=== PATIENT | female | born 1940 | race African-American/Black ===

== ENCOUNTER 2018-06-24 17:23 | Inpatient (IN) | payer BC, MEDICARE ==
[~2018-06-24] VITALS: Ht 162.6 cm; Wt 62.6 kg
[2018-06-24] MEDS ORDERED: AMLO2.5T45 PO (17:30)
[2018-06-24] MEDS ORDERED: FLUT1DIS3 IH (17:30)
[2018-06-24] MEDS ORDERED: ASPIRIN 81MG TABLET PO ONE (18:00)
[2018-06-24] MEDS ORDERED: NITROGLYCERIN 0.4MG TABLET SL SL PRN (18:00)
[2018-06-24 18:49] LABS: BASOPHILS % 0.8 % (0.0-2.0); EOSINOPHILS % 3.3 % (0.0-5.0); HEMATOCRIT. 37.8 % (36.0-48.0); HEMOGLOBIN. 12.2 g/dL (12.0-16.0); LYMPHOCYTES % 28.7 % (20.0-50.0); MEAN CORPUSCULAR HEMOGLOBIN 27.4 pg (28.0-32.0); MEAN CORPUSCULAR VOLUME 84.6 fL (81.0-99.0); MEAN PLATELET VOLUME 8.7 fl (7.4-10.4); MONOCYTES % 9.3 % (2.0-8.0); NEUTROPHILS % 57.9 % (40.0-76.0); PLATELET 211 x1000/uL (130-400); RED BLOOD CELL COUNT 4.47 mill/uL (4.2-5.4); RED CELL DISTRIBUTION WIDTH 13.6 % (11.6-14.6)
[2018-06-24 18:54] LABS: CHLORIDE 104 mEq/L (98-107)
[2018-06-25] VITALS (7 sets, daily range): BP systolic 107–158; BP diastolic 53–70
[2018-06-25] MEDS ORDERED: AMLO5TAB88 PO (00:45)
[2018-06-25] MEDS ORDERED: MORPHINE SULFATE 4 MG/ML CPJ (NOT FOR IM USE) IV PRN (00:45)
[2018-06-25] MEDS ORDERED: HYDR12.529 PO (00:46)
[2018-06-25] MEDS ORDERED: ALBU90AE IH (00:48)
[2018-06-25] MEDS ORDERED: OMEP20CA10 PO (00:50)
[2018-06-25] MEDS: AMLODIPINE 5MG TABLET PO SCH (08:30)
[2018-06-25] MEDS ORDERED: MEDICATION NOT ON FORMULARY EA (Amlodipine Besylate 5 MG) PO SCH (09:00)
[2018-06-25] MEDS ORDERED: DOCUSATE SODIUM 100MG CAPSULE PO PRN (12:00)
[2018-06-25] MEDS ORDERED: HYDROCODONE/ACETAMINOPHEN 10/325MG TABLET PO PRN (12:00)
[2018-06-25] MEDS ORDERED: NA PHOS,M-B/NA PHOS,DI-BA ENEMA 118ML PR PRN (12:00)
[2018-06-25] MEDS ORDERED: MAGNESIUM/ALUMINUM HYDROXIDE/SIMETHICONE 30ML UDC PO PRN (12:00)
[2018-06-25] MEDS ORDERED: CLONIDINE 0.1MG TABLET PO PRN (12:00)
[2018-06-25] MEDS ORDERED: ONDANSETRON HCL 4MG/2ML INJ IV PRN (12:00)
[2018-06-25] MEDS ORDERED: IPRATROPIUM/ALBUTEROL 0.5-3(2.5)MG/3ML NEB INH PRN (12:00)
[2018-06-25] MEDS ORDERED: HYDROCODONE/ACETAMINOPHEN 5/325MG TABLET PO PRN (12:00)
[2018-06-25] MEDS ORDERED: ACETAMINOPHEN 650MG SUPP PR PRN (12:00)
[2018-06-25] MEDS ORDERED: DIPHENHYDRAMINE 50MG/ML VIAL IV PRN (12:00)
[2018-06-25] MEDS ORDERED: ACETAMINOPHEN 650MG/20.3ML UDC GT PRN (12:00)
[2018-06-25] MEDS ORDERED: ACETAMINOPHEN 325MG TABLET PO PRN (12:00)
[2018-06-25] MEDS ORDERED: GUAIFENESIN 200MG/10ML SUGAR FREE UDC PO PRN (12:00)
[2018-06-25] MEDS: SODIUM CHLORIDE 0.9% INJ 3ML FLUSH IVF SCH (22:40)
[2018-06-26 00:13] LABS: EOSINOPHILS % 3.3 % (0.0-5.0); HEMATOCRIT. 36.1 % (36.0-48.0); HEMOGLOBIN. 11.5 g/dL (12.0-16.0); LYMPHOCYTES % 33.8 % (20.0-50.0); MEAN CORPUSCULAR HEMOGLOBIN 26.9 pg (28.0-32.0); MEAN CORPUSCULAR VOLUME 84.2 fL (81.0-99.0); MEAN PLATELET VOLUME 8.5 fl (7.4-10.4); NEUTROPHILS % 50.9 % (40.0-76.0); PLATELET 220 x1000/uL (130-400); RED BLOOD CELL COUNT 4.28 mill/uL (4.2-5.4); RED CELL DISTRIBUTION WIDTH 13.3 % (11.6-14.6)
[2018-06-26 00:24] LABS: CHLORIDE 105 mEq/L (98-107)
[2018-06-26 00:46] LABS: CLARITY URINE TURBID (CLEAR); COLOR URINE YELLOW (YELLOW); KETONES URINE TRACE (NEGATIVE); LEUKOCYTE ESTERASE URINE 1+ (NEGATIVE); NITRITE URINE NEGATIVE (NEGATIVE); OCCULT BLOOD URINE NEGATIVE (NEGATIVE); PROTEIN URINE NEGATIVE (NEGATIVE); SPECIFIC GRAVITY URINE 1.024 (1.005-1.030)
[2018-06-26 00:55] LABS: *AMPHETAMINES SCREEN URINE NEGATIVE (NEGATIVE); *BARBITURATES SCREEN URINE NEGATIVE (NEGATIVE); *BENZODIAZEPINES SCREEN URINE NEGATIVE (NEGATIVE); *COCAINE SCREEN URINE NEGATIVE (NEGATIVE)
[2018-06-26 00:56] LABS: CANNABINOID URINE SCREEN NEGATIVE (NEGATIVE); METHADONE URINE SCREEN NEGATIVE (NEGATIVE); OPIATES URINE SCREEN NEGATIVE (NEGATIVE); PHENCYCLIDINE URINE SCREEN NEGATIVE (NEGATIVE)
[2018-06-26 04:00] VITALS: BP 140/56
[2018-06-26] MEDS: SODIUM CHLORIDE 0.9% INJ 3ML FLUSH IVF SCH ×3 (04:44→20:31)
[2018-06-26 07:11] LABS: EOSINOPHILS % 3.9 % (0.0-5.0); HEMATOCRIT. 36.8 % (36.0-48.0); HEMOGLOBIN. 11.8 g/dL (12.0-16.0); LYMPHOCYTES % 32.4 % (20.0-50.0); MEAN CORPUSCULAR VOLUME 84.4 fL (81.0-99.0); MONOCYTES % 10.7 % (2.0-8.0); PLATELET 219 x1000/uL (130-400); RED BLOOD CELL COUNT 4.36 mill/uL (4.2-5.4); RED CELL DISTRIBUTION WIDTH 13.5 % (11.6-14.6)
[2018-06-26 08:00] VITALS: BP 113/51
[2018-06-26] MEDS: AMLODIPINE 5MG TABLET PO SCH (08:04)
[2018-06-26] MEDS: ENOXAPARIN 40MG/0.4ML SYR SUBCUT SCH ×2 (08:04→09:00)
[2018-06-26 08:32] LABS: CHLORIDE 108 mEq/L (98-107)
[2018-06-26 08:42] LABS: LDL CHOLESTEROL 94 mg/dL (5-100)
[2018-06-26 08:44] LABS: HDL CHOLESTEROL 87 mg/dL (40-59)
[2018-06-26 11:21] LABS: T4 FREE 1.08 ng/dL (0.76-1.46)
[2018-06-26 12:00] VITALS: BP 120/69
[2018-06-26] MEDS ORDERED: REGADENOSON 0.4 MG/5 ML IV ONE (15:00)
[2018-06-26 16:00] VITALS: BP 130/50
[2018-06-26 17:06] LABS: CREATINE KINASE 44 IU/L (26-192)
[2018-06-26 17:07] LABS: CREATINE KINASE MB FRACTION < 1.0 ng/mL (0.5-3.6)
[2018-06-26 20:00] VITALS: BP 150/64
[2018-06-26 23:20] LABS: CREATINE KINASE 43 IU/L (26-192)
[2018-06-26 23:21] LABS: CREATINE KINASE MB FRACTION < 1.0 ng/mL (0.5-3.6)
[2018-06-27] VITALS: BP 124/59
[2018-06-27 04:00] VITALS: BP 136/60
[2018-06-27] MEDS: SODIUM CHLORIDE 0.9% INJ 3ML FLUSH IVF SCH (05:06)
[2018-06-27 06:10] LABS: CREATINE KINASE 40 IU/L (26-192)
[2018-06-27 06:11] LABS: CREATINE KINASE MB FRACTION < 1.0 ng/mL (0.5-3.6)
[2018-06-27 08:00] VITALS: BP 134/50
[2018-06-27] MEDS ORDERED: REGADENOSON 0.4 MG/5 ML IV ONE (08:10)
[2018-06-27] MEDS: ENOXAPARIN 40MG/0.4ML SYR SUBCUT SCH (09:00)
[2018-06-27] MEDS: AMLODIPINE 5MG TABLET PO SCH (09:00)
[2018-06-27 12:00] VITALS: BP 141/58
[2018-06-27 14:32] VITALS: BP 141/58
== END 2018-06-27 16:21 | disposition home or self-care (01) | DRG 392 ==
LOC: ER 17:23 → 7WST 19:38 → EDBEDREQ 19:43 → ENRESERV 22:48
PROVIDERS: ADMIT Family Medicine; ATTEND Family Medicine
DX: K21.9 Gastro-esophageal reflux disease without esophagitis (principal); I10 Essential (primary) hypertension; J45.909 Unspecified asthma, uncomplicated
CPT/HCPCS: 36415; 71045; 78452; 80061; 80305; 82550; 82553; 83036; 83880; 84439; 84443; 84484; 85379; 93005; 93017; 93306; 93970; 96374; 99285; A9500; J1650; J2785